=== PATIENT | male | born 1940 | race Caucasian/White ===

== ENCOUNTER 2016-07-19 16:02 | Emergency (ER) | payer OTHER ==
[~2016-07-19 16:02] MED LIST: ALEVE220 MG PO; ASAB PO; L-ARGININE; LIPITOR40 PO; LOP25 PO; LOP50 PO; NORV5 PO; PRIN10 PO; PROTONIX PO; ZESTORETIC PO; ZESTORETIC1 TAB PO; ZOCOR20 PO
[2016-07-19 18:13] LABS: BASOPHILS 0.2 %; BASOPHILS ABSOLUTE 0.02 10/3/uL (0.0-0.16); EOSINOPHILS 0.7 %; EOSINOPHILS ABSOLUTE 0.08 10/3/uL (0.0-0.53); HEMOGLOBIN 13.3 g/dL (13.6-17.8); IMMATURE GRANULOCYTES 0.3 %; IMMATURE GRANULOCYTES ABSOLUTE 0.03 10/3/uL (0.0-0.11); LYMPHOCYTES 6.1 %; LYMPHOCYTES ABSOLUTE 0.71 10/3/uL (0.67-4.30); MEAN CORPUS HGB CONC 34.2 g/dL (32.0-36.0); MEAN CORPUSCULAR HEMOGLOB 30.2 pg (26.0-34.0); MEAN CORPUSCULAR VOLUME 88.2 fL (80-100); MONOCYTES 6.1 %; MONOCYTES ABSOLUTE 0.71 10/3/uL (0.21-1.20); NEUTROPHILS 86.6 %; NEUTROPHILS ABSOLUTE 10.06 10/3/uL (2.02-8.40); PLATELET COUNT 224 10/3/uL (150-400); RBC DISTRIBUTION WIDTH 14.6 % (12.0-16.0); RED CELL COUNT 4.41 10/6/uL (4.7-6.1); WHITE BLOOD CELLS 11.6 10/3/uL (4.5-10.5)
[2016-07-19 18:15] LABS: HEMATOCRIT 38.9 % (40.0-51.0); MANUAL DIFF NO %
[2016-07-19 18:22] LABS: INTERNATIONAL NORMAL RATI 1.1 UNITS (-); PARTIAL THROMBO TIME 28.7 SEC (22.5-37.2); PROTIME (NOT ORD) 14.2 SEC (12.0-14.5)
[2016-07-19 18:30] LABS: BUN (BLOOD UREA NITROGEN) 11 MG/DL (6-23); CALCIUM, SERUM 8.2 MG/DL (8.5-10.4); CHEST PAIN PROFILE TAT 0 Hrs 21 Mins; CHLORIDE, SERUM 94 MMOL/L (96-112); CO2 (CARBON DIOXIDE) 31 MMOL/L (24-34); CREATININE 1.13 MG/DL (0.70-1.30); GFR AFRICAN AMERICAN 73 ML/MIN (>=60); GFR NON AFRICAN AMERICAN 63 ML/MIN (>=60); GLUCOSE, SERUM 201 MG/DL (60-99); SODIUM, SERUM 136 MMOL/L (135-148); TROPONIN I <0.02 NG/ML (<0.05)
[2016-07-19 19:50] LABS: WBC (NOT ORDERED) (RFLEX) 0 (0-5)
[2016-07-19 20:08] LABS: ASCORBIC ACID (UR NOT ORDER) NEG (NEG); BILIRUBIN, URINE NEGATIVE (NEG); ER URINALYSIS TAT 0 Hrs 20 Mins; KETONE, URINE 20 MG/DL (NEG); LEUKOCYTE ESTERASE(NOT OR NEG (NEG); NITRITE (URINE) NEG (NEG)
== END 2016-07-19 21:44 | disposition home or self-care (01) ==
LOC: ER 16:02
PROVIDERS: Emergency Medicine
DX: R55 Syncope and collapse (principal); R00.8 Other abnormalities of heart beat; I10 Essential (primary) hypertension; Z95.5 Presence of coronary angioplasty implant and graft; Z88.2 Allergy status to sulfonamides; Z79.82 Long term (current) use of aspirin; Z79.899 Other long term (current) drug therapy
CPT/HCPCS: 71010; 80048; 81001; 83735; 84484; 85025; 85610; 85730; 93005; 93225; 99285; A9270-GY